=== PATIENT | male | born 1990 | race Caucasian/White ===

== ENCOUNTER 2018-07-31 05:09 | Emergency (ER) | payer SELFPAY ==
[~2018-07-31] VITALS: Wt 76.6 kg
[2018-07-31 05:11] VITALS: BP 136/82; PULSE 97; RESP 18
--- NOTE | 2018-07-31 06:15 | ERD ---
ER Documentation Chief Complaint Chief Complaint SOB X'S 2 DAYS HPI 28-year-old male, previously healthy, presents to the emergency department, complaining of 2 days with progressive shortness of breath, associated with palpitations and anxiety. The patient states that he was drinking last night and using marijuana but denies the use of any drugs. He denies chest pain. No family history of coronary artery disease at a young age. No medications taken at this time. ROS All systems reviewed and are negative except as per history of present illness. Medications Home Meds Active Scripts Hydroxyzine Hcl* (Hydroxyzine Hcl*) 25 Mg Tablet, 25 MG PO Q8H PRN for ANXIETY, #12 TAB Prov:MACKENZIE MILLAN MD 07/31/18 Allergies Allergies: Coded Allergies: No Known Allergy (Unverified , 07/31/18) PMhx/Soc Medical and Surgical Hx: pt denies Medical Hx, pt denies Surgical Hx Hx Alcohol Use: Yes (OCASSIONALLY) Hx Substance Use: Yes (MARIJUANA) Hx Tobacco Use: Yes Smoking Status: Current some day smoker Physical Exam Vitals Vital Signs Date Temp Pulse Resp B/P (MAP) Pulse Ox O2 O2 Flow FiO2 Time Delivery Rate 07/31/18 97.6 97 18 136/82 99 05:11 (100) Physical Exam Const: No acute distress Head: Atraumatic Eyes: Normal Conjunctiva ENT: Normal External Ears, Nose and Mouth. Neck: Full range of motion. No meningismus. Resp: Clear to auscultation bilaterally Cardio: Regular rate and rhythm, no murmurs Abd: Soft, non tender, non distended. Normal bowel sounds Skin: No petechiae or rashes Back: No midline or flank tenderness Ext: No cyanosis, or edema Neur: Awake and alert Psych: Normal Mood and Affect Results 24 hrs Current Medications Medications Dose Sig/Zeferino Start Time Status Last (Trade) Ordered Route PRN Stop Time Admin Dose Reason Admin Lorazepam 0.5 mg ONCE ONCE 07/31/18 DC 07/31/18 (Ativan) PO 07:00 06:54 07/31/18 07:01 EKG read by me: Rate/Rhythm: Regular rate and rhythm at a rate of 68 Intervals: Normal No acute ST changes. No T wave inversion Impression: No evidence of acute ischemia or arrhythmia Procedures/MDM 28-year-old male previously healthy, presents to the emergency department complaining of shortness of breath and palpitations for 2 days after drinking alcohol and using marijuana. Vital signs stable. Differential diagnosis include but not limited to: URI, PNA, chostochondritis, anxiety, GERD, musculoskeletal injury, less likely PE, pericarditis, endocarditis. Pertinent Data: 12 Lead ECG: Sinus rhythm, no ST changes, normal T wave, normal intervals Physical examination and clinical presentation consistent most likely with atypical chest pain most likely secondary to anxiety. During the ED course the patient remained stable, no new complaints, he received lorazepam with improvement of the symptoms. Results and clinical impression discussed with patient who agrees with management. The patient is stable to be treated outpatient and will be discharged home with a Rx for hydroxyzine, some side effects of prescribed medications (headache, rash, nausea, vomiting, diarrhea, drowsiness, habituation, bleeding, hypertension, interactions with other medications) were reviewed. The patient was instructed to follow up with the primary care provider in the next 48h. If symptoms persist, worsen or new symptoms develop, then patient should return to the ED immediately. Instructions explained and given directly by me to the patient with acknowledgment and demonstrated understanding. Disclaimer: Inadvertent spelling and grammatical errors are likely due to EHR/dictation software use and do not reflect on the overall quality of patient care. Also, please note that the electronic time recorded on this note does not necessarily reflect the actual time of the patient encounter. Departure Diagnosis: Primary Impression: Atypical chest pain Additional Impression: Anxiety Condition: Stable Patient Instructions: Your Body's Response to Anxiety Additional Instructions: Thank you very much for allowing us to participate in your care. Your health and safety is our top priority at [facility]. Call your primary care doctor TOMORROW for an appointment during the next 2-4 days and bring all the information and medications prescribed. Have prescriptions filled and follow precisely the directions on the label. If the symptoms get worse and your provider is unavailable, return to the Emergency Department immediately. MACKENZIE MILLAN MD Jul 31, 2018 06:15
[2018-07-31] MEDS ORDERED: LORAZEPAM 0.5 MG TAB PO ONE (07:00)
[2018-07-31] MEDS ORDERED: HYDR-843 PO (07:19)
== END 2018-07-31 07:28 | disposition home or self-care (01) ==
LOC: FTE 05:09
DX: R07.89 Other chest pain (principal); F41.9 Anxiety disorder, unspecified; F17.210 Nicotine dependence, cigarettes, uncomplicated
CPT/HCPCS: 93005

== ENCOUNTER 2018-11-24 16:09 | Emergency (ER) | payer SELFPAY ==
[~2018-11-24 16:09] MED LIST: HYDR-843 PO
== END 2018-11-24 17:07 | disposition left against medical advice (07) ==
LOC: E/R 16:09
DX: Z53.21 Procedure and treatment not carried out due to patient leaving prior to being seen by health care provider (principal)